=== PATIENT | male | born 1970 | race African-American/Black ===

== ENCOUNTER 2022-06-13 09:46 | Emergency (ER) | payer OTHER, SELFPAY ==
--- NOTE | ~2022-06-13 | XR_ITS ---
EXAMINATION: XR ABDOMEN KUB CLINICAL INDICATION: Altered bowel habits. No bowel movement for a week. COMPARISON: None TECHNIQUE: Supine views (3) of the abdomen. FINDINGS: Nonobstructive gas pattern. Moderate stool burden. No mass or adenopathy. Visualized lung bases grossly clear. Rounded calcification in the left hemipelvis likely a small phlebolith. No acute osseous finding. XR/XR KUB IMPRESSION: Moderate stool burden.
--- NOTE | ~2022-06-13 | CT_ITS ---
EXAMINATION: CT ABDOMEN AND PELVIS WITH CONTRAST CLINICAL INFORMATION: Abdominal pain, constipated. No bowel movement for a week. COMPARISON: KUB 06/13/2022 TECHNIQUE: Multidetector volumetric images were obtained from the superior aspect of the liver through the pubic symphysis following administration 85 mL of Omnipaque 350 intravenous contrast. Sagittal and coronal reformatted images were obtained on the technologist's workstation. Oral contrast: No This CT examination was performed using dose optimization techniques as appropriate, variously including the following: *Automated exposure control *Adjustment of mA and/or kV according to patient size (this includes techniques or standardized protocols for targeted exams where dose is matched to indication/reason for exam; i.e. extremities or head) *Use of iterative reconstruction technique DLP: 717 mGy-cm FINDINGS: LUNG BASES: Bibasilar disc atelectasis. No infiltrate or effusion. LIVER, GALLBLADDER, AND BILIARY TREE: Normal in size and smooth in contour. No focal parenchymal lesion or intrahepatic ductal dilatation. Gallbladder shows no dilatation or stone or wall thickening. Incidental fold versus phrygian cap at fundus. No pericholecystic inflammatory changes. Common duct unremarkable. PANCREAS: Unremarkable. SPLEEN: Unremarkable. ADRENAL GLANDS: Unremarkable. KIDNEYS AND URETERS: The kidneys are normal in size and enhance symmetrically. There is no hydronephrosis, hydroureter, calculi, or perinephric stranding. Incidental 1.3 cm cyst anterior interpolar right kidney 10 HU. No additional imaging follow-up recommended. BLADDER: Unremarkable. GASTROINTESTINAL TRACT: No bowel obstruction or focal inflammatory changes in bowel or mesentery. Moderate stool in colon. No rectal fecal impaction. No ascites or fluid collection. No pneumatosis or free air. ABDOMINAL WALL: No significant hernia is appreciated. LYMPH NODES: No retroperitoneal or pelvic or inguinal lymphadenopathy. Incidental note right lower quadrant mesentery under 6 mm short axis. VASCULAR: Unremarkable. PELVIC VISCERA: Unremarkable. OSSEOUS STRUCTURES: Degenerative disc changes lumbosacral junction. CT/CT abdomen pelvis w con IMPRESSION: -No bowel obstruction or focal inflammatory changes. -No hydronephrosis or calculi. -No cholelithiasis or ductal dilatation.
[2022-06-13 11:01] VITALS: BP 147/98; PULSE 100; RESP 18; TEMP 36.6; O2SAT 97; BMI 32.5
[2022-06-13 11:16] LABS: MANUAL DIFF FLAG NO
[2022-06-13 11:19] LABS: Basophils Percent Auto 0.2 % (0-2); Eosinophils Percent Auto 0.4 % (0-4); Hematocrit 40.2 % (42.0-52.0); Hemoglobin 14.4 g/dl (14.0-18.0); Imm Gran Abs Auto 0.01 X10*3/uL (0.00-0.03); Imm Gran Pct Auto 0.2 % (0.0-0.4); Lymphocytes Absolute Auto 2.1 X10*3/uL (1.2-4.9); Lymphocytes Percent Auto 40.4 % (20-40); Mean Corpuscular HGB Conc 35.8 g/dl (31.0-36.0); Mean Corpuscular Hemoglobin 28.2 pg (27.0-33.0); Mean Corpuscular Volume 78.8 fL (80.0-98.0); Mean Platelet Volume 10.8 fL (9.4-12.4); Monocytes Absolute Auto 0.4 X10*3/uL (0.1-1.2); Monocytes Percent Auto 7.6 % (2-11); Neutrophils Absolute Auto 2.6 x10*3/uL (2.0-8.3); Neutrophils Percent Auto 51.2 % (45-73); Platelet Count 240 X10*3/uL (160-400); Red Cell Distribution Width 12.4 % (11.0-16.0); White Blood Count 5.1 X10*3/uL (4.8-10.8)
[2022-06-13 11:31] LABS: Alanine Aminotransferase 56 U/L (0-40); Albumin Level 4.5 g/dL (3.5-5.0); Alkaline Phosphatase 76 U/L (39-117); Anion Gap 10 (12-20); Aspartate Amino Transferase 42 U/L (5-37); Bilirubin Direct 0.4 mg/dL (0.0-0.5); Bilirubin Total 1.1 mg/dL (0.0-1.0); Blood Urea Nitrogen 10 mg/dL (9-16); Calcium 9.3 mg/dL (8.4-10.2); Carbon Dioxide 30 mmol/L (22-29); Chloride 100 mmol/L (96-108); Creatinine Clr Calc Pharmacy 130.3; Estimated Glomerular Filt Rate > 60; Glucose Random 119 mg/dL (60-115); Potassium 3.8 mmol/L (3.3-5.1); Sodium 136 mmol/L (135-145); Total Protein 7.8 g/dL (6.5-8.0)
--- NOTE | 2022-06-13 15:10 | ED.ABDPAIN ---
HPI - Abdominal Pain General Chief Complaint: Abdominal Pain Stated Complaint: vomiting/havent eaten in 1 week Time Seen by Provider: 06/13/22 14:28 Source: patient Mode of arrival: ambulatory Limitations: no limitations History of Present Illness HPI narrative: Patient presents emergency department for evaluation of nausea/vomiting and constipation. He states that symptom onset was 1 week ago. He began vomiting within 5-10 minutes after having any oral liquids or oral solids. He had a very small bowel movement 1 week ago. Six days ago he was evaluated, states he received 2 L of IV fluids and Zofran which improved his symptoms for 2 days. Over the past 4 days he began again vomiting any time he had something to eat. Over the past 2 days he has developed tenderness/tightness to the diffuse upper abdomen. Denies any bright red blood or dark/coffee-ground emesis. Denies any leakage of stools or rectal bleeding. States prior to this he typically would move his bowels at least once daily with a soft movement. Denies fevers, chills, chest pain, palpitations, shortness of breath, difficulty breathing, dysuria, urinary frequency/urgency/hesitancy. Related Data Previous Rx's Medication Instructions Recorded ondansetron 4 mg disintegrating 4 mg PO Q8H PRN nausea and 06/13/22 tablet vomiting #10 tabs sennosides 8.6 mg tablet (Senna 8.6 mg PO DAILY PRN constipation 06/13/22 Lax) #7 tabs Allergies Allergy/AdvReac Type Severity Reaction Status Date / Time [id number]-[id number] Reductase Allergy Unknown INCLUSIONBODY Verified 06/13/22 11:00 Inhibitor MYOCITIS [[id number] REDUCTASE INHIBITOR] doxycycline Allergy Itching Verified 06/13/22 11:00 Review of Systems Review of Systems Constitutional : No Weight loss, No Fever, No Chills ENT/Mouth :? No sore throat, No Rhinorrhea Eyes: No Swelling, No Redness Cardiovascular : No Chest Pain, No SOB, No Edema Respiratory : No Cough, No Sputum, No Wheezing Gastrointestinal : Positive Nausea, Positive Vomiting, no Diarrhea, positive constipation, positive abdominal pain, No Hematochezia, No Melena Genitourinary : No Dysuria, No Urinary Frequency, No Hematuria, No Urgency? Musculoskeletal : No joint pain, No Myalgias, No Joint Swelling Skin : No Skin Lesions, No rash Neuro : No Weakness, No Numbness, No Dizziness, No Headache Psych : No Anxiety/Panic, No Depression Heme/Lymph: No Bruising, No Lymphadenopathy Endocrine : No Polyuria, No Polydipsia Yes all other systems are reviewed and are negative [facility] Past Medical History Attestation statement: The following information was validated with the patient. Source: old records reviewed Medical History Inclusion body myositis Social History Social History Advance Directives: No Advance Directives Information Provided: Yes Physical Exam ED Vital Signs: Vital Signs - 24 hr 06/13/22 11:01 Temperature 98 F Pulse Rate 100 Respiratory Rate 18 Blood Pressure 147/98 H Pulse Oximetry 97 Oxygen Delivery Method Room Air BMI result Body Mass Index 32.5 Vital signs have been reviewed and appeared to be correct. Hypertensive? Heart rate normal.? Respiration rate normal. Temperature normal.? Oxygen saturation normal. Appearance: Alert.?Oriented to person, place and time. No acute distress.?Normal affect. Eyes: Pupils equal, round and reactive to light.? ENT: Pharynx normal.?? Neck: Normal inspection.? Neck supple.?? CVS: Heart sounds normal. Normal heart rate and rhythm.? Pulses normal.?? Respiratory: No respiratory distress.? Lung sounds clear to auscultation bilaterally?? Abdomen: Soft with tenderness to the left upper quadrant epigastric and right upper quadrant with deep palpation. Hypoactive bowel sounds. No pulsatile mass.?? Skin: Skin warm and dry.? Normal skin color.? ? Extremities: No lower extremity edema.? Neuro: Moves all extremities spontaneously. Sensation intact bilaterally. CN II-XII intact. No focal neuro deficits. Ambulates with slow unsteady gait with use of assistive devices at baseline Course Course Course Narrative: Patient is a 51-year-old male with a past medical history of inclusion body myositis, presenting to emergency department for evaluation of nausea/vomiting/constipation. Abdominal exam significant for upper quadrant tenderness. CBC overall unremarkable, CMP overall unremarkable, mildly elevated transaminases consistent with prior labs, will add on lipase. KUB obtained from triage reveals a moderate stool burden. Concern at this time for possible obstruction, will obtain CT of the abdomen/pelvis for further evaluation. History and physical exam not consistent with GI perforation, GI bleed, AAA, aortic dissection, DKA. Not consistent with strangulated hernia, pulmonary embolism, mesenteric ischemia, myocardial infarction, testicular torsion. At this time patient declines needing any medication for nausea or pain. Disposition will be pending results. Reevaluation(s) Reevaluation #1: CT of the abdomen and pelvis reveals no bowel obstruction or focal inflammatory changes, no cholelithiasis or ductal dilation, there is a moderate amount of stool in the colon but no fecal impaction. Discussed these findings with patient, advised for plan of care for discharge home, outpatient follow-up with his primary care provider within 1-3 days, bowel regimen for constipation, bland diet, worrisome signs and symptoms to return back to the emergency department for. Patient discharged home in stable condition. Time: 17:58 MDM - Abdominal Pain Medical Records Attestation: I reviewed the patient's medical records. Lab Data Attestation: I reviewed the patient's lab results. Result diagrams: 06/13/22 11:08 06/13/22 11:08 Labs: Lab Results 06/13/22 06/13/22 Range/Units 11:08 11:08 WBC 5.1 (4.8-10.8) X10*3/uL RBC 5.10 (4.60-5.80) X10*6/uL Hgb 14.4 (14.0-18.0) g/dl Hct 40.2 L (42.0-52.0) % MCV 78.8 L (80.0-98.0) fL MCH 28.2 (27.0-33.0) pg MCHC 35.8 (31.0-36.0) g/dl RDW 12.4 (11.0-16.0) % Plt Count 240 (160-400) X10*3/uL MPV 10.8 (9.4-12.4) fL Immature Gran % (Auto) 0.2 (0.0-0.4) % Neut % (Auto) 51.2 (45-73) % Lymph % (Auto) 40.4 H (20-40) % Stark % (Auto) 7.6 (2-11) % Eos % (Auto) 0.4 (0-4) % Baso % (Auto) 0.2 (0-2) % Lymph # (Auto) 2.1 (1.2-4.9) X10*3/uL Stark # (Auto) 0.4 (0.1-1.2) X10*3/uL Eos # (Auto) 0.0 (0.0-0.4) X10*3/uL Baso # (Auto) 0.0 (0.0-0.2) X10*3/uL Abs Immat Gran (auto) 0.01 (0.00-0.03) X10*3/uL Absolute Neuts (auto) 2.6 (2.0-8.3) x10*3/uL Absolute Nucleated RBC 0.000 (0.0-0.012) X10*3/uL Nucleated RBC % (auto) 0.0 (0.0-0.2) /100WBC Sodium 136 (135-145) mmol/L Potassium 3.8 (3.3-5.1) mmol/L Chloride 100 (96-108) mmol/L Carbon Dioxide 30 H (22-29) mmol/L Anion Gap 10 L (12-20) BUN 10 (9-16) mg/dL Creatinine 0.74 (0.5-1.4) mg/dL Estim Creat Clear Calc 130.3 Estimated GFR > 60 Random Glucose 119 H (60-115) mg/dL Calcium 9.3 (8.4-10.2) mg/dL Total Bilirubin 1.1 H (0.0-1.0) mg/dL Direct Bilirubin 0.4 (0.0-0.5) mg/dL AST 42 H (5-37) U/L ALT 56 H (0-40) U/L Alkaline Phosphatase 76 (39-117) U/L Total Protein 7.8 (6.5-8.0) g/dL Albumin 4.5 (3.5-5.0) g/dL Lipase 21 (8-78) U/L Imaging Data XR ABD: Radiologist's impression: XR/XR KUB IMPRESSION: Moderate stool burden. CT scan - abdomen: Radiologist's impression: CT/CT abdomen pelvis w con IMPRESSION: -No bowel obstruction or focal inflammatory changes. -No hydronephrosis or calculi. -No cholelithiasis or ductal dilatation.? Discharge Plan Discharge Clinical Impression: Constipation Patient Disposition: Home, Self-Care Instructions: Constipation (ED) Additional Instructions: Introduce a bland diet including crackers, bananas, rice, soup, toast, and boiled vegetables. This may progress to plain baked or boiled chicken or turkey. Avoid dairy products or foods high in fat or grease. Use Zofran as needed for nausea. Take senna as instructed for constipation. Follow-up with your primary care provider within 1-3 days Return to the emergency department any new or worsening symptoms or concerns such as fevers, chills, nausea and persistent vomiting, severe worsening pain, bloody or dark stools Prescriptions: New ondansetron 4 mg tablet,disintegrating 4 mg PO Q8H PRN (Reason: nausea and vomiting) Qty: 10 0RF sennosides [Senna Lax] 8.6 mg tablet 8.6 mg PO DAILY PRN (Reason: constipation) Qty: 7 0RF
[2022-06-13 15:39] LABS: Lipase 21 U/L (8-78)
[2022-06-13] MEDS: 0.9 % Sodium Chloride 1,000 ML 999 ML IV (15:58)
[2022-06-13] MEDS: iohexoL 350 MG/ML 100 ML INFUS..BTL IV (16:22)
== END 2022-06-13 18:46 | disposition home or self-care (01) ==
PROVIDERS: Nurse Practitioner Family; Emergency Provider Emergency Medicine; PCP Internal Medicine
DX: K59.00 Constipation, unspecified (principal); R11.2 Nausea with vomiting, unspecified; R10.10 Upper abdominal pain, unspecified
CPT/HCPCS: 36415; 74018; 74177; 80048; 80076; 83690; 85025; 96360; 99283; 99284; Q9967